=== PATIENT | female | born 1960 | race Caucasian/White ===

== ENCOUNTER → 2018-07-14 | Outpatient (CLI) | payer MEDICARE, MEDICAID ==
[~2018-07-14] MED LIST: PROHANCE 279.3MG/ML 15ML VIAL (A9576) As Ordered ONE
--- NOTE | 2018-07-14 14:09 | REP ---
MRI ABDOMEN WITH AND WITHOUT CONTRAST: Prior ultrasound at [facility] dated 06/20/2018 showed a 1 cm echogenic nodule in the right lobe of the liver. Multiple sequences are obtained in the axial and coronal planes prior to and following the intravenous administration of 13 mL ProHance. The liver demonstrates an ill-defined focus of fatty infiltration anteriorly in the right lobe along the fissure for the ligamentum teres measuring about 1 cm in diameter. No other liver nodule is seen. There is no abnormal enhancement in the liver. The spleen is normal in size with no intrinsic abnormality. The adrenals and pancreas appear unremarkable. I do not see evidence of biliary dilatation. Gallbladder is grossly unremarkable. Subcentimeter cyst is seen in the upper pole of the right kidney and another is seen in the lower pole of the right kidney. There is an oval nonenhancing cyst which appears to be hemorrhagic or proteinaceous in the upper pole of the left kidney 1.2 cm in maximum diameter. This is hyperintense on the precontrast T1 fat sat images. There is a 1 cm cyst in the lower pole of the left kidney. No hydronephrosis is seen bilaterally. There is no adenopathy. There is no free fluid in the visualized abdomen. IMPRESSION: Focal fatty infiltration in the right lobe of the liver along the fissure for ligamentum teres anteriorly. No other liver nodule is seen. Relatively small bilateral renal cysts as discussed above. One of the cysts is complex in the upper pole of the left kidney demonstrating signal characteristics most consistent with a hemorrhagic or proteinaceous cyst. Electronically Signed by Justen Bermudez MD 07/15/2018 02:41 P
== END ==
LOC: M RAD 08:46
PROVIDERS: ATTEND Specialist
DX: R93.3 Abnormal findings on diagnostic imaging of other parts of digestive tract (principal); K76.0 Fatty (change of) liver, not elsewhere classified; N28.1 Cyst of kidney, acquired
CPT/HCPCS: 74183; A9576

== ENCOUNTER → 2018-12-08 | Outpatient (CLI) | payer MEDICARE, MEDICAID ==
--- NOTE | 2018-12-08 19:00 | REP ---
Low-dose chest CT: Screening exam. Without contrast. Tree: Nicotine dependence. No comparison imaging. Findings: There are mild areas of subpleural linear fibrosis in the lower lobes bilaterally. There is no evidence of lung mass. There is a 4 mm noncalcified nodule in the right upper lobe on page 19 of 105. No other pulmonary nodule is appreciated. Impression: Lung RADS category II benign category findings. Repeat screening exam recommended 1 year. Electronically Signed by Duane Rodriguez MD 12/09/2018 07:47 A
== END ==
LOC: M RAD 15:46
PROVIDERS: ATTEND Family Medicine
DX: Z12.2 Encounter for screening for malignant neoplasm of respiratory organs (principal); F17.210 Nicotine dependence, cigarettes, uncomplicated